=== PATIENT | female | born 1950 | race Caucasian/White ===

== ENCOUNTER 2025-06-13 19:00 | Emergency (ER) | payer MEDICARE ==
[~2025-06-13] VITALS: Ht 172.7 cm; Wt 97.4 kg
[2025-06-13] MEDS ORDERED: IBLOOD GLUCOSE TEST STRIP 1 EA TEST XX ONE (19:30)
[2025-06-13 19:32] LABS: BASOPHILS 0.7 % (0.1-1.2); EOSINOPHILS 1.6 % (0.7-5.8); LYMPHOCYTES 26.6 % (19.3-51.7); MCH 28.5 PG (25.6-32.2); MCHC 32.6 g/dL (32.2-35.5); MCV 87.5 fL (79.4-94.8); MONOCYTES 7.7 % (4.7-12.5); NEUTROPHILS 63.3 % (34.0-71.1); RBC 4.88 M/uL (3.93-5.22)
[2025-06-13 19:36] LABS: INR 1.05 (0.80-1.30); PROTIME 13.3 Sec (11.2-14.2)
[2025-06-13 19:44] LABS: ALT (SGPT) 12.0 U/L (14-59); AST (SGOT) 10.0 U/L (15-37); GLOMERULAR FILTRATION RATE,EST 59.0 mL/min (>60); PROTEIN, TOTAL 7.1 g/dL (6.4-8.2); UREA NITROGEN 9.0 mg/dL (7-18)
[2025-06-13] MEDS ORDERED: TRAZODONE HCL100 MG PO (20:09)
[2025-06-13] MEDS ORDERED: ROSUVASTATIN CA10 MG PO (20:09)
[2025-06-13] MEDS ORDERED: MOUNJARO10 MG/0.5 (20:12)
[2025-06-13] MEDS ORDERED: BUPROPION HCL75 MG PO (20:12)
[2025-06-13 20:13] LABS: BLOOD/HGB, URINE NEGATIVE (Negative); KETONE, URINE NEGATIVE (Negative); LEUK ESTERASE, URINE MODERATE (negative); NITRITE, URINE NEGATIVE (negative)
[2025-06-13] MEDS ORDERED: METOPROLOL SUCC25 MG PO (20:13)
[2025-06-13] MEDS ORDERED: XARELTO20 MG PO (20:14)
[2025-06-13] MEDS ORDERED: METFORMIN HCL500 MG PO (20:14)
[2025-06-13 20:20] LABS: BACTERIA, URINE RARE /hpf (negative); CASTS, URINE NONE SEEN \\lpf; CRYSTALS, URINE NONE SEEN (0-1+)
[2025-06-13 20:21] LABS: REFLEX CULTURE, URINE Yes (No)
[2025-06-13 20:27] LABS: AMPHETAMINES, URINE NEGATIVE (NEGATIVE); BARBITURATES, URINE NEGATIVE (NEGATIVE); BENZODIAZEPINE, URINE NEGATIVE (NEGATIVE); CANNABINOID, URINE POSITIVE (NEGATIVE); COCAINE, URINE NEGATIVE (NEGATIVE); ECSTASY, URINE NEGATIVE (NEGATIVE); FENTANYL, URINE NEGATIVE (NEGATIVE); METHADONE, URINE NEGATIVE (NEGATIVE); OPIATES, URINE NEGATIVE (NEGATIVE); OXYCODONE, URINE NEGATIVE (NEGATIVE); PHENCYCLIDINE, URINE NEGATIVE (NEGATIVE)
[2025-06-13] MEDS ORDERED: CEFDINIR300 MG PO ×2 (22:02→22:17)
[2025-06-13 22:30] VITALS: BP 95/68
--- NOTE | 2025-06-15 13:12 | EKG ---
[facility] [address] [facility] [place] [address] Signed Accelerated Junctional rhythm Nonspecific ST abnormality Abnormal ECG No previous ECGs available Poor data quality Confirmed by Samuel Reyes DO ([id number]) on 06/15/2025 1:12:02 PM Electronically Signed By: SAMUEL REYES DO 06/15/25 1312 PATIENT NAME: QI HERNANDEZ Electrocardiogram DATE OF : 46 PHYSICIAN: SAMUEL REYES DO REPORT #: [id number] REPORT IS CONFIDENTIAL AND NOT TO BE RELEASED WITHOUT AUTHORIZATION
[2025-06-17] MEDS ORDERED: METFORMIN HCL500 M1 PO (11:40)
== END 2025-06-13 22:30 | disposition home or self-care (01) ==
LOC: ED 19:00
PROVIDERS: Family Medicine
DX: N39.0 Urinary tract infection, site not specified (principal); Z86.73 Personal history of transient ischemic attack (TIA), and cerebral infarction without residual deficits; Z79.84 Long term (current) use of oral hypoglycemic drugs; Z79.899 Other long term (current) drug therapy
CPT/HCPCS: 36415; 70450; 70496; 70498; 71045; 80053; 80307; 81001; 84484; 85025; 85610; 85730; 87088; 93005; 93010; 96365; 99284-25; J0696; Q9967